=== PATIENT | male | born 1985 | race Two or more races ===

== ENCOUNTER 2020-10-14 07:06 | Day surgery (SDC) | payer OTHER | END 2020-10-14 12:24 | disposition home or self-care (01) | LOC: AMB-ENDOS 07:06 | PROVIDERS: ATTEND Colon & Rectal Surgery | DX: K62.89 Other specified diseases of anus and rectum (principal); K64.8 Other hemorrhoids; Z12.11 Encounter for screening for malignant neoplasm of colon; Z20.828 Contact with and (suspected) exposure to other viral communicable diseases ==

== ENCOUNTER 2023-02-20 11:00 | Inpatient (IN) | payer OTHER ==
[~2023-02-20] VITALS: Ht 182.9 cm; Wt 72.6 kg
[2023-02-24] MEDS ORDERED: LANSOPRAZOLE30 MG (09:26)
[2023-02-24] MEDS ORDERED: FAMOTIDINE20 MG (09:26)
[2023-02-26] MEDS ORDERED: PERCOCET 5-3251 EACH PO (12:22)
[2023-02-26] MEDS ORDERED: NEURONTIN300 MG PO (12:22)
[2023-02-26] MEDS ORDERED: PRILOSEC OTC20 MG PO (12:22)
[2023-02-26] MEDS ORDERED: INTESTINEX680 M1 PO (12:22)
== END 2023-02-26 13:50 | disposition home or self-care (01) | DRG 331 ==
LOC: SURH 11:00 → SURG 02-23 06:00 → O/R 02-23 06:00 → SURH 02-23 11:00 → SURG 02-23 15:34
PROVIDERS: ADMIT Surgery; ATTEND Surgery
PROC: 07BC4ZZ Excision of Pelvis Lymphatic, Percutaneous Endoscopic Approach (ICD-10-PCS; 2023-02-23)
PROC: 0DTF4ZZ Resection of Right Large Intestine, Percutaneous Endoscopic Approach (ICD-10-PCS; principal; 2023-02-23 15:30)
DX: C18.0 Malignant neoplasm of cecum (principal); K64.0 First degree hemorrhoids